=== PATIENT | female | born 1955 | race Caucasian/White ===

== ENCOUNTER 2018-06-19 11:04 | Inpatient (IN) | payer OTHER ==
[~2018-06-19] VITALS: Ht 149.9 cm; Wt 77.5 kg
[2018-06-19 11:20] LABS: BASOPHIL (%) 0.6 % (0-1); EOSINOPHIL (%) 1.1 % (0-5); EOSINOPHIL COUNT 0.1 K/uL (0-0.3); HEMOGLOBIN 14.6 G/DL (11.9-15.5); IMMATURE GRANULOCYTE (%) 0.2 % (0.0-0.7); LYMPHOCYTE (%) 32.6 % (15-42); LYMPHOCYTE COUNT 2.1 K/uL (1.0-2.8); MCH 30.1 PG (29.0-34.0); MCHC 35.6 G/DL (30.0-36.0); MCV 84.5 FL (83-99); MONOCYTE (%) 8.2 % (3-12); MONOCYTE COUNT 0.5 K/uL (0-0.8); NEUTROPHIL (%) 57.3 % (45-76); NEUTROPHIL COUNT 3.7 K/uL (1.8-6.4); PLATELET COUNT 167 K/uL (156-360); RBC DIS.WIDTH-CV 12.8 % (11.8-14.6); RBC DIS.WIDTH-SD 38.9 % (39-53); RED BLOOD COUNT 4.85 M/uL (3.80-5.20); WHITE BLOOD COUNT 6.5 K/uL (4.1-10.2)
[2018-06-19 11:28] LABS: PTT 26.5 SEC (25-37)
[2018-06-19 11:31] LABS: AMYLASE 31 IU/L (1-118); CHLORIDE 101 mEq/L (99-109); POTASSIUM 3.7 mEq/L (3.7-5.4); SODIUM 138 mEq/L (136-147)
[2018-06-19 11:33] LABS: GLUCOSE 264 mg/dL (70-99)
[2018-06-19 11:36] LABS: SERUM ETHYL ALCOHOL < 10 mg/dL
[2018-06-19 11:37] LABS: CREATININE 0.8 mg/dL (0.6-1.3)
[2018-06-19 11:38] LABS: GFR ESTIMATE (CALCULATED) > 59 mL/min/; UREA NITROGEN (BUN) 11 mg/dL (9-23)
[2018-06-19 11:40] LABS: LIPASE 18 U/L (1.0-51.0)
[2018-06-19 11:41] LABS: TROP-I INTERPRETATION NEGATIVE; TROPONIN-I < 0.01 ng/mL (0.0-0.30)
[2018-06-19 12:28] LABS: APPEARANCE CLEAR ((CLEAR)); BILIRUBIN NEGATIVE; BLOOD NEGATIVE; COLOR STRAW ((YELLOW)); GLUCOSE (STRIP) >=500; KETONES NEGATIVE; LEUKOCYTES LARGE; NITRITE NEGATIVE; PROTEIN (STRIP) NEGATIVE; SPECIFIC GRAVITY 1.044 (1.000-1.030); UROBILINOGEN 0.2 MG/DL (0.2-1.0)
[2018-06-19 12:48] LABS: AMPHETAMINE NEGATIVE (500 ng/mL); BARBITURATES NEGATIVE (200 ng/mL); BENZODIAZEPINES NEGATIVE (150 ng/mL); BUPRENORPHINE NEGATIVE (10 ng/mL); COCAINE NEGATIVE (150 ng/mL); METHADONE NEGATIVE (200 ng/mL); METHAMPHETAMINE NEGATIVE (500 ng/mL); OPIATES (MORPHINE) NEGATIVE (100 ng/mL); OXYCODONE NEGATIVE (100 ng/mL); PHENCYCLIDINE NEGATIVE (25 ng/mL); PROPOXYPHENE NEGATIVE (300 ng/mL); THC CANNABINOIDS NEGATIVE (50 ng/mL); TRICYCLIC ANTIDEPRESSANTS NEGATIVE (300 ng/mL)
[2018-06-19 12:50] LABS: BACTERIA RARE /HPF; EPITHELIAL CELLS 1+ /HPF; MUCUS NONE SEEN /LPF; RED BLOOD CELLS 0-5 /HPF (0-5); UCUL ADDED? YES
[2018-06-19] MEDS ORDERED: HYDROCODON-ACE1 EAC8 PO (13:39)
[2018-06-19] MEDS ORDERED: ZOLPIDEM TARTRAT5 MG PO (13:40)
[2018-06-19] MEDS ORDERED: BUPROPION XL150 MG PO (13:40)
[2018-06-19] MEDS ORDERED: ATORVASTATIN CA80 MG PO (13:49)
[2018-06-19] MEDS ORDERED: LISINOPRIL5 MG PO (13:49)
[2018-06-19] MEDS ORDERED: MAGNESIUM OXID400 MG PO (13:50)
[2018-06-19] MEDS ORDERED: GLIPIZIDE10 MG PO (13:51)
[2018-06-19] MEDS ORDERED: ASPIR-LOW81 MG PO (13:52)
[2018-06-19] MEDS ORDERED: CARVEDILOL3.125 MG PO (13:52)
[2018-06-19] MEDS ORDERED: METFORMIN HCL1000 MG PO (13:53)
[2018-06-19] MEDS ORDERED: CLOPIDOGREL75 MG PO (13:53)
[2018-06-19] MEDS ORDERED: SERTRALINE HCL100 MG PO (13:55)
[2018-06-19] MEDS ORDERED: EZETIMIBE10 MG PO (13:55)
[2018-06-19] MEDS ORDERED: BACTROBAN OINTM22 GM TP (13:57)
[2018-06-19] MEDS ORDERED: CLEOCIN150 MG PO (13:57)
[2018-06-19] MEDS ORDERED: CLOTRIMAZOLE-BE15 GM TP (13:58)
[2018-06-19 14:24] LABS: HDL CHOLESTEROL 51 MG/DL (Desirable>=50); LDL CHOLESTEROL 171 mg/dL (Desirable<100); NON-HDL CHOLESTEROL 225 mg/dL (Desirable<160); TOTAL CHOLESTEROL 276 mg/dL (Desirable<200); TRIGLYCERIDES 269 MG/DL (Normal: <150)
[2018-06-19 14:50] VITALS: BP 155/81
[2018-06-19 19:45] VITALS: BP 175/79
[2018-06-20] VITALS (7 sets, daily range): BP systolic 123–176; BP diastolic 62–82
[2018-06-20 09:52] LABS: HEMOGLOBIN A1c (GLYCOHEMOGLOB) 11.3 % (Below 5.7)
[2018-06-21 03:12] VITALS: BP 114/59
[2018-06-21 07:18] VITALS: BP 127/62
== END 2018-06-21 14:18 | disposition home or self-care (01) | DRG 690 ==
LOC: EME 11:04 → EDOF 13:23 → 5SOUTH 13:23 → ENRESERV 13:33 → 5SOUTH 14:37 → ENPENDDIS 06-21 11:12 → 5SOUTH 06-21 14:18
PROVIDERS: Emergency Medicine; Internal Medicine
DX: N39.0 Urinary tract infection, site not specified (principal); I10 Essential (primary) hypertension; E86.0 Dehydration; R29.810 Facial weakness; R47.01 Aphasia; I69.351 Hemiplegia and hemiparesis following cerebral infarction affecting right dominant side; E11.9 Type 2 diabetes mellitus without complications; E66.9 Obesity, unspecified; Z68.34 Body mass index [BMI] 34.0-34.9, adult; I25.10 Atherosclerotic heart disease of native coronary artery without angina pectoris; E78.5 Hyperlipidemia, unspecified; K21.9 Gastro-esophageal reflux disease without esophagitis; F32.9 Major depressive disorder, single episode, unspecified; Z91.14 Patient's other noncompliance with medication regimen; Z79.82 Long term (current) use of aspirin; Z79.84 Long term (current) use of oral hypoglycemic drugs; Z79.899 Other long term (current) drug therapy; Z95.5 Presence of coronary angioplasty implant and graft; Z98.84 Bariatric surgery status; Z90.710 Acquired absence of both cervix and uterus
CPT/HCPCS: 70450; 70496; 70498; 70551; 80047; 80048; 80061; 81003; 82150; 82948; 83036; 83690; 84484; 85025; 85610; 85730; 86850; 86900; 86901; 87086; 93005; 99281; 99285; G0480; J0696; J1650; J1815